=== PATIENT | male | born 1995 | race Caucasian/White ===

== ENCOUNTER 2024-06-24 12:28 | Emergency (ER) | payer SELFPAY ==
[2024-06-24 12:31] VITALS: BP 133/84
[2024-06-24 13:47] VITALS: BMI 34.3
[2024-06-24] MEDS: TORADOL 15 MG IM (13:53)
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
[2024-06-24 14:00] VITALS: BP 127/66
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
[2024-06-24 17:48] VITALS: BP 116/83
== END 2024-06-24 18:02 | disposition home or self-care (01) ==
LOC: EMR 12:28
PROVIDERS: EMERGENCY PHYSICIAN Student in an Organized Health Care Education/Training Program; FAMILY PHYSICIAN Family Medicine
DX: S22.20XA Unspecified fracture of sternum, initial encounter for closed fracture (principal); S80.211A Abrasion, right knee, initial encounter; S60.511A Abrasion of right hand, initial encounter; V89.2XXA Person injured in unspecified motor-vehicle accident, traffic, initial encounter
CPT/HCPCS: 99285; 96372; 71250; 73130; 93005

== ENCOUNTER 2024-09-06 13:17 | Emergency (ER) | payer BC, SELFPAY ==
[2024-09-06 13:20] VITALS: BP 118/83
--- NOTE | 2024-09-06 16:01 | ED.GENMED ---
History of Present Illness
General
Chief Complaint: Musculo-Skeletal Complaint
Time Seen by Provider: 09/06/24 14:50
History of Present Illness
History of Present Illness:
29-year-old male presents to the emergency department for evaluation of low back pain radiating down both legs for the past several days. Initially injured the back while golfing 3 days ago, was able to manage until he took a step out of his truck
and felt immediate pain. It intermittently radiates to both legs. No loss of bladder or bowel function. Has not taken any medications today
Review of Systems
Review of Systems
Allergies reviewed?: Yes
All Other Systems: ROS reviewed and negative except as documented in HPI and ROS
Phy Exam
Physical Exam
Physical Exam:
GEN: Well appearing, NAD, WDWN
HEENT: Oral mucosa moist, no scleral icterus
Cardiac: Regular rate
Lung: No respiratory distress, no tachypnea
MSK: No gross deformity or injuries. No reproducible back pain to palpation. Lower Extremity strength is 5/5 in all estrella bilat
Skin: Good color, no pallor or jaundice, no rashes
Neuro: AO x3, moves all extremities freely
Psych: Calm, cooperative
Course
Orders/Labs/Results
Orders:
Orders
09/06/24 16:00
Ketorolac [Toradol] 30 mg IM NOW STA
Vital Signs
Initial and Last Documented VS:
Initial Vital Signs
Temp Pulse Resp BP Pulse Ox
99 F 105 16 118/83 99
09/06/24 13:20 09/06/24 13:20 09/06/24 13:20 09/06/24 13:20 09/06/24 13:20
Last Documented Vital Signs
Temp Pulse Resp BP Pulse Ox
99 F 105 16 118/83 99
09/06/24 13:20 09/06/24 13:20 09/06/24 13:20 09/06/24 13:20 09/06/24 13:20
MDM/Problems Addressed
MDM/Problems Addressed:
Likely acute muscle strain/spasm, will prescribe NSAIDs and muscle relaxants, no indication for x-ray as this was nontraumatic
*Critical Care Note
Total Time (30-74mins, 75-104mins- exclusive of procedures): Not Applicable
ED Attending Note
-
Portions of this chart may have been created with voice recognition software.� Occasional wrong word or��sound alike� substitutions may have occurred due to the inherent limitations of voice recognition software.
Discharge Plan
Departure
Patient Disposition: Home (Routine Discharge)
Date of Disposition: 09/06/24
Time of Disposition: 16:04
Patient with high blood pressure during this ER visit?: No
Discharge Problem:
Acute lumbar myofascial strain
Instructions: Back exercises, Low back pain - ED discharge instructions
Prescriptions:
New
diclofenac sodium 75 mg tablet,delayed release (DR/EC)
75 mg PO BID Qty: 20 0RF
methocarbamol 750 mg tablet
750 - 1,500 mg PO Q8H PRN (Reason: pain) Qty: 20 0RF
No Action
ibuprofen 800 mg tablet
800 mg PO Q8H PRN (Reason: Pain) Qty: 20 0RF
Referrals:
Larry Valle MD [Family Provider, Family Practice]
Interventions
Interventions:
*Risk Screen - Suicide Last Done: 09/06/24 13:21
*General Assessment Last Done: 09/06/24 16:00
*Neglect/Abuse Screening Last Done: 09/06/24 13:21
*ED- Fall Risk Assessment Last Done: 09/06/24 16:00
*ED COVID-19 Vaccine History Last Done: 09/06/24 16:00
*Nursing Disposition Last Done: 09/06/24 17:14
ED-Musculoskeletal Assessment Last Done: 09/06/24 17:14
Discharge Date and Time
Discharge Date/Time: 09/06/24 17:15
Print Language: DUTCH
[2024-09-06] MEDS: TORADOL 30 MG IM (16:16)
== END 2024-09-06 17:15 | disposition home or self-care (01) ==
LOC: EMR 13:17
PROVIDERS: EMERGENCY PHYSICIAN Emergency Medicine; FAMILY PHYSICIAN Family Medicine
DX: S39.012A Strain of muscle, fascia and tendon of lower back, initial encounter (principal); X50.9XXA Other and unspecified overexertion or strenuous movements or postures, initial encounter
CPT/HCPCS: 99284; 96372